=== PATIENT | female | born 1995 | race Hispanic/Latino ===

== ENCOUNTER 2018-01-07 07:01 | Emergency (ER) | payer SELFPAY ==
[~2018-01-07] VITALS: Ht 172.7 cm; Wt 99.8 kg
[2018-01-07] MEDS ORDERED: DIPHTH/TETANUS/ACEL. PERTUSSIS 0.5 ML SYR IM ONE (07:30)
[2018-01-07] MEDS ORDERED: BACITRACIN ZINC 15 GM OINT TOP ONE (07:30)
[2018-01-07 08:40] VITALS: BP 140/76
== END 2018-01-07 08:37 | disposition home or self-care (01) ==
LOC: FSED 07:01
DX: S71.111A Laceration without foreign body, right thigh, initial encounter (principal); X99.8XXA Assault by other sharp object, initial encounter; Y92.019 Unspecified place in single-family (private) house as the place of occurrence of the external cause; S70.311A Abrasion, right thigh, initial encounter; S80.811A Abrasion, right lower leg, initial encounter; S40.812A Abrasion of left upper arm, initial encounter; S70.312A Abrasion, left thigh, initial encounter; S80.812A Abrasion, left lower leg, initial encounter; Z23 Encounter for immunization
CPT/HCPCS: 90471; 99283